=== PATIENT | female | born 1950 | race Caucasian/White ===

== ENCOUNTER 2017-06-08 08:00 | Day surgery (SDC) | payer OTHER, BC ==
--- NOTE | 2017-06-07 09:35 | HP ---
Admitting History and Physical - Primary Care Physician PCP: Nacho Cruz - Admission Chief Complaint: Left breast cancer History of Present Illness: 67 year old postmenapausal female with left nipple flattening. and retraction. Mammogram and US showed highly suspicious left retroareolar density with nipple retraction 1.9 cm. and suspiciousleft axillary lymph node 3.3 cm. Sghe underwent left US core bx and axillary bx 04/2017. Pathology showed invasive ductal carcinoma, ER/[place] positive and HEr 2 negative.The axillary lymph node bx was also positive. Breast MRI showed Left retroareolar cancer and axillary node. History Source: Patient Limitations to Obtaining History: No Limitations - Past Medical History Cardiovascular: Yes: HTN, Hyperlipdemia Endocrine: Yes: Diabetes Mellitus - Smoking History Smoking history: Former smoker Have you smoked in the past 12 months: No If you are a former smoker, when did you quit?: 2006 - Alcohol/Substance Use Hx Alcohol Use: No Home Medications - Allergies Allergies/Adverse Reactions: Allergies Allergy/AdvReac Type Severity Reaction Status Date / Time shellfish derived Allergy Severe throat Verified 05/31/17 14:43 closes No Known Drug Allergies Allergy Verified 05/31/17 14:42 - Home Medications Home Medications: Ambulatory Orders Atorvastatin Ca [Lipitor] 40 mg PO HS 05/31/17 Gemfibrozil 600 mg PO BID 05/31/17 Glimepiride 2 mg PO BID 05/31/17 Losartan Potassium 50 mg PO DAILY 05/31/17 Metformin HCl [Glucophage] 1,000 mg PO BID 05/31/17 Family Disease History - Family Disease History Family Disease History: CA: Mother (lung ca 67) Physical Examination Constitutional: Yes: Well Nourished Breast(s): Yes: Other (obvious flattening of left nipple and ptotic D cup breasts Palpable left retroareolar mass 2.5 cm and involvement of nipple and axillary node) Problem List - Problems (1) Breast cancer, left breast Code(s): C50.912 - MALIGNANT NEOPLASM OF UNSPECIFIED SITE OF LEFT FEMALE BREAST Qualifiers: Breast location: nipple Patient sex: female Assessment/Plan Left breast central wide excison and left axillary node dissection
[2017-06-08 08:25] VITALS: BMI 30.9
[2017-06-08] MEDS ORDERED: BUPIVACAINE HCL/PF 2.5 MG/ML - 30 ML VIAL IJ ONE (09:24)
[2017-06-08] MEDS ORDERED: BUPIVACAINE HCL/PF (5 MG/ML) 30 ML VIAL IJ ONE (09:29)
[2017-06-08] MEDS ORDERED: DEXAMETHASONE SOD PHOSPHATE/PF 10 MG/ML SDV ONE (09:29)
[2017-06-08] MEDS ORDERED: MIDAZOLAM HCL 2 MG/2 ML SINGLE DOSE VIAL ONE (09:29)
[2017-06-08] MEDS ORDERED: PROPOFOL 20 ML ONE ×2 (09:55)
[2017-06-08] MEDS ORDERED: ceFAZolin SODIUM 1 GM VIAL ONE (10:24)
[2017-06-08] MEDS ORDERED: ONDANSETRON 4 MG/2 ML VIAL ONE (10:24)
[2017-06-08] MEDS ORDERED: KETOROLAC TROMETHAMINE 30 MG/1 ML VIAL ONE (10:24)
[2017-06-08] MEDS ORDERED: DEXAMETHASONE SOD PHOSPHATE 4 MG/1 ML VIAL ONE (10:24)
[2017-06-08] MEDS ORDERED: LIDOCAINE HCL 2% JELLY (5 ML/TUBE) ONE (10:24)
[2017-06-08] MEDS ORDERED: ePHEDrine SULFATE 50 MG/1 ML AMPULE ONE (10:33)
[2017-06-08] MEDS ORDERED: BUPIVACAINE HCL/PF 0.25% (2.5MG/ML) 10 ML VIAL IJ ONE ×2 (11:02→11:52)
[2017-06-08] MEDS ORDERED: ZOLPIDEM TARTRATE 5 MG TABLET PO PRN ×2 (12:16→13:18)
[2017-06-08] MEDS ORDERED: ONDANSETRON 4 MG/2 ML VIAL IVPB PRN ×2 (12:16→13:18)
[2017-06-08] MEDS ORDERED: ACETAMINOPHEN 325 MG TABLET (FP) PO PRN ×2 (12:16→13:18)
[2017-06-08] MEDS ORDERED: oxyCODONE HCL 5 MG TABLET PO PRN ×4 (12:20→13:18)
[2017-06-08] MEDS ORDERED: PROMETHAZINE HCL 25 MG/1 ML VIAL IVPUSH PRN ×2 (12:20→13:18)
[2017-06-08] MEDS ORDERED: ONDANSETRON 4 MG/2 ML VIAL IVPUSH PRN ×2 (12:20→13:18)
[2017-06-08] MEDS ORDERED: ACETAMINOPHEN 325 MG TABLET (FP) PO SCH (12:30)
[2017-06-08] MEDS ORDERED: DEXTROSE 5%-0.45% SALINE 1,000 ML IV SCH ×2 (12:30→13:30)
[2017-06-08] MEDS ORDERED: LACTATED RINGERS SOLUTION 1,000 ML IV SCH ×2 (12:30→13:15)
[2017-06-08] MEDS ORDERED: ACETAMINOPHEN 325 MG TABLET (FP) ONE (13:03)
--- NOTE | 2017-06-08 13:06 | OP ---
DATE OF OPERATION: 06/08/2017 PREOPERATIVE DIAGNOSIS: Left breast central breast cancer with axillary lymph node disease. POSTOPERATIVE DIAGNOSIS: Left breast central breast cancer with axillary lymph node disease. PROCEDURE: Left breast central wide excision and left axillary lymph node dissection with partial tissue transfer closure. PRIMARY SURGEON: Nacho Cruz M.D. METEOROLOGICAL EQUIPMENT REPAIRER: ANDREI Clark COMPLICATIONS: None. ANESTHESIA: General laryngeal mask airway anesthesia. INDICATIONS: Briefly, the patient is a 67-year-old G4, P3, postmenopausal white female of Citizen Of [place] descent. She has no family history of breast or ovarian cancer, but her mother from lung cancer. The patient noticed some flattening of the left nipple and underwent the mammography and ultrasound April 2017 showing a left breast retroareolar density with nipple retraction and ultrasound showed a 1.9-cm density and she underwent an ultrasound core biopsy showing an infiltrating duct cancer intermediate grade, which was ER/[place] strongly positive and HER2/akshat negative. She was noted to have suspicious axillary lymph node on ultrasound and had that needle biopsy as well confirming metastatic breast cancer to the axillary nodes. The cancer was HER2/akshat negative by FISH with a ratio of 1.2. She underwent an MRI showing localized central left breast cancer with a suspicious axillary lymph node. The patient was advised of undergoing a left breast central wide excision with an axillary lymph node dissection. DESCRIPTION OF PROCEDURE: She was brought in for the procedure on June 08, 2017. In the holding area and site verification was made and informed consent was obtained. She was brought into the operating room and laid on the operating room table in the supine position. Venodyne was placed on the lower extremities prior to induction. She received a gram of Ancef prior to incision. She underwent general laryngeal mask airway anesthesia. She did have a pre-pectoral nerve block prior to coming into the operating room for postoperative pain control as well. Once she was properly anesthetized, the left breast was sterilely prepped and draped in the usual fashion with the left arm prepped in the field. The surgery was started with the central wide excision. An ellipse was made around the nipple/areolar complex and wide excision was undertaken, which removed the entire nipple/areolar complex and a wedge resection was undertaken deep into the left breast. The cancer was easily palpable and removed without difficulty. The specimen was oriented with a long lateral and short superior suture and specimen radiographs showed them over the cancer in question with a clip within the specimen. It was placed in formalin and sent down to Pathology as specimen. Hemostasis was achieved. A tissue transfer closure was then accomplished and the breast tissue was reapproximated using 2-0 plain suture. About a 5 x 5-cm tissue transfer was performed in order to close the defect in the center of the breast. The skin was then closed using interrupted 3-0 deep dermal Vicryl suture and a running 4-0 subcuticular Biosyn suture. At this point, the left axillary lymph node dissection was undertaken. An incision was made just below the hair barrier of the left axilla and dissection was undertaken excising the entire level 1 and level 2 region of the left axillary contents. The pectoralis minor was used as the medial border dissection with the latissimus as the lateral border of dissection and the axillary vein as the superior border of dissection. The lymph nodes were completely cleared out from within this triangle. The second intercostal brachial nerve was identified and dissected free and spared. There were grossly palpable lymph nodes felt in the left axilla, which were completely removed with the axillary dissection. The specimen was removed and sent to Pathology in formalin as left axillary lymph node dissection. The long thoracic and thoracodorsal nerves were identified and spared throughout their entire courses. Hemostasis was achieved and the wound was copiously irrigated with warm sterile saline. A 15 Rolf drain was then placed into the left axilla and brought out through a separate stab incision on the anterior axillary line and sutured in place using 2-0 nylon suture. The axilla was then closed using interrupted 2-0 plain suture. The skin was closed using interrupted 3-0 deep dermal Vicryl suture and a running 4-0 subcuticular Biosyn suture. Mastisol and Steri-Strips were applied over the wound with a compressive dressing placed over this and she was placed in a surgical bra postoperatively. The patient will be recovered and admitted postoperatively for pain control and wound management. Laryngeal mask airway tube was removed at the end of the case. Estimated blood loss was about 50 mL and she was hemodynamically stable throughout. The Rolf drain was placed on Hilraio-Moore soft bulb suction. Sanjana [id number]
[2017-06-08] MEDS: ACETAMINOPHEN 325 MG TABLET (FP) PO SCH ×2 (14:30→19:30)
[2017-06-08 14:44] LABS: HEMATOCRIT 41.7 % (32.4-45.2); MCH 31.3 pg (25.7-33.7); MCHC 33.5 g/dl (32.0-36.0); MEAN CELL VOLUME 93.3 fl (80-96); MEAN PLT VOLUME 9.4 fl (7.5-11.1); PLATELET COUNT 294 K/MM3 (134-434); RBC 4.47 M/mm3 (3.60-5.2); RDW 12.6 % (11.6-15.6); WHITE BLOOD COUNT 10.3 K/mm3 (4.0-10.8)
[2017-06-08] MEDS: metFORMIN HCL 500 MG TABLET (FP) PO SCH (15:47)
[2017-06-08] MEDS ORDERED: PT OWN MED DRAWER 7, Y5N ONE (21:04)
[2017-06-08] MEDS: oxyCODONE HCL 10 MG SUSTAINED ACTING TABLET PO SCH (21:19)
[2017-06-08] MEDS: GEMFIBROZIL 600 MG TABLET (FP) PO SCH (21:19)
[2017-06-08] MEDS ORDERED: INSULIN (NOVOLOG) ASPART 100 UNITS/ML 10ML VIAL SQ ONE (22:00)
[2017-06-08] MEDS ORDERED: GEMFIBROZIL 600 MG TABLET (FP) PO SCH (22:00)
[2017-06-08] MEDS ORDERED: PATIENT'S OWN MEDICATION (NON-FORMULARY) (Metformin Hcl [Glucophage] 1,000 MG) PO SCH (22:00)
[2017-06-08] MEDS ORDERED: oxyCODONE HCL 10 MG SUSTAINED ACTING TABLET PO SCH (22:00)
[2017-06-08] MEDS ORDERED: ATORVASTATIN CA 40 MG TABLET (FP) PO SCH ×2 (22:00)
[2017-06-09] MEDS: ACETAMINOPHEN 325 MG TABLET (FP) PO SCH ×2 (01:23→07:34)
[2017-06-09 06:42] VITALS: TEMP 98.4
[2017-06-09] MEDS: metFORMIN HCL 500 MG TABLET (FP) PO SCH (06:42)
[2017-06-09 08:46] LABS: HEMATOCRIT 38.5 % (32.4-45.2); HEMOGLOBIN 13.3 GM/dl (10.7-15.3); MCHC 34.4 g/dl (32.0-36.0); MEAN PLT VOLUME 9.6 fl (7.5-11.1); PLATELET COUNT 305 K/MM3 (134-434); RBC 4.15 M/mm3 (3.60-5.2); RDW 12.5 % (11.6-15.6); WHITE BLOOD COUNT 14.4 K/mm3 (4.0-10.8)
[2017-06-09] MEDS ORDERED: PT OWN MED DRAWER 7, Y5N ONE (09:09)
[2017-06-09 09:18] VITALS: BP 154/67; PULSE 89
[2017-06-09] MEDS: GEMFIBROZIL 600 MG TABLET (FP) PO SCH (09:19)
[2017-06-09] MEDS: oxyCODONE HCL 10 MG SUSTAINED ACTING TABLET PO SCH (09:19)
[2017-06-09] MEDS ORDERED: GLIMEPIRIDE 2 MG TABLET (FP) PO SCH (10:00)
[2017-06-09] MEDS ORDERED: LOSARTAN POTASSIUM 50 MG TABLET (FP) PO SCH ×2 (10:00)
--- NOTE | 2017-06-09 10:21 | PN ---
Progress Note, Physician Chief Complaint: Left breast cancer S/P central wide excision and axillary node dissection POD # 1 History of Present Illness: patient is OOb eating pain managed ready for discharge - Current Medication List Current Medications: Active Medications Acetaminophen (Tylenol -) 650 mg PO Q4H PRN PRN Reason: FEVER OR PAIN Acetaminophen (Tylenol -) 650 mg PO Q6H [facility] Stop: 06/11/17 12:29 Last Admin: 06/09/17 07:34 Dose: 650 mg Atorvastatin Calcium (Lipitor -) 40 mg PO HS [facility] Last Admin: 06/08/17 21:17 Dose: 40 mg Fentanyl (Sublimaze Injection -) 50 mcg IVPUSH [id number] PRN PRN Reason: PAIN Gemfibrozil (Lopid -) 600 mg PO BID [facility] Last Admin: 06/09/17 09:19 Dose: 600 mg Glimepiride (Amaryl -) 4 mg PO DAILY@0700 [facility] Last Admin: 06/09/17 09:18 Dose: 4 mg Dextrose/Sodium Chloride (D5-1/2ns -) 1,000 mls @ 100 mls/hr IV ASDIR [facility] Last Admin: 06/08/17 15:14 Dose: Not Given Lactated Ringer's (Lactated Ringers Solution) 1,000 mls @ 75 mls/hr IV ASDIR [facility] Last Admin: 06/08/17 14:30 Dose: Not Given Losartan Potassium (Cozaar -) 50 mg PO DAILY [facility] Last Admin: 06/09/17 09:19 Dose: 50 mg Metformin HCl (Glucophage -) 1,000 mg PO BIDAC [facility] Last Admin: 06/09/17 06:42 Dose: 1,000 mg Ondansetron HCl (Zofran Injection) 4 mg IVPUSH Q6H PRN PRN Reason: NAUSEA AND/OR VOMITING Oxycodone HCl (Roxicodone -) 5 mg PO Q3H PRN PRN Reason: PAIN LEVEL 1-5 Oxycodone HCl (Roxicodone -) 10 mg PO Q3H PRN PRN Reason: PAIN LEVEL 6-10 Oxycodone HCl (Oxycontin -) 10 mg PO BID [facility] Stop: 06/11/17 12:20 Last Admin: 06/09/17 09:19 Dose: 10 mg Promethazine HCl (Phenergan Injection -) 12.5 mg IVPUSH Q6H PRN PRN Reason: NAUSEA-FOR RESCUE AFTER 15 MIN Zolpidem Tartrate (Ambien -) 5 mg PO HS PRN PRN Reason: INSOMNIA - Objective Vital Signs: Vital Signs Temperature 98.4 F 06/09/17 06:00 Pulse Rate 89 06/09/17 09:17 Respiratory Rate 16 06/09/17 09:17 Blood Pressure 154/67 06/09/17 09:17 O2 Sat by Pulse Oximetry (%) 99 06/09/17 09:17 Constitutional: Yes: No Distress Breast(s): Yes: Other (Left breast flap viable no echymosis or signs of infection incisions intact with steristrips,KARMA drain funtioning) Labs: CBC, BMP 06/09/17 08:00 Problem List - Problems (1) Breast cancer, left breast Code(s): C50.912 - MALIGNANT NEOPLASM OF UNSPECIFIED SITE OF LEFT FEMALE BREAST Qualifiers: Breast location: nipple Patient sex: female Assessment/Plan ready for discharge today KARMA training follow up one week no shower cefadroxil and pain meds prn
--- NOTE | 2017-06-14 14:09 | PATH ---
Surgical Pathology Report Patient Name: AUDREY GARCIA Med. Rec. #: [id number] /Age/Gender: 1950 (Age: 67) / F Account: <[id number]> Location: [facility] Taken: 06/08/2017 Received: 06/08/2017 Reported: 06/14/2017 Physicians: Nacho Cruz M.D. Specimen(s) Received A: LEFT BREAST WIDE EXCISION B: LEFT BREAST SUPERIOR MARGIN C: LEFT BREAST LATERAL MARGIN D: LEFT BREAST INFERIOR MARGIN E: LEFT BREAST MEDIAL MARGIN F: LEFT BREAST DEEP MARGIN G: LEFT AXILLARY NODE DISSECTION Clinical History Central wide excision, invasive Known node positive disease Final Diagnosis A. BREAST, LEFT, WIDE EXCISION: INVASIVE DUCTAL CARCINOMA, MODERATELY DIFFERENTIATED (TUBULE SCORE: 3/3, NUCLEAR GRADE: 2/3, MITOTIC SCORE: 2/3; TOTAL ABDOUL SCORE: 7/9). INVASIVE CARCINOMA MEASURES 4 x 2.5 CM IN GREATEST DIMENSION (GROSS MEASUREMENT) FOCAL DUCTAL CARCINOMA IN SITU (DCIS), SOLID TYPE, INTERMEDIATE GRADE. INVASIVE CARCINOMA INVOLVES DERMIS OF SKIN AND NIPPLE. MICROCALCIFICATIONS PRESENT WITHIN INVASIVE CARCINOMA. LYMPHOVASCULAR AND PERINEURAL INVASION IDENTIFIED. SURGICAL MARGINS ARE UNINVOLVED BY IN SITU AND INVASIVE CARCINOMA; CARCINOMA IS AT 2 MM FROM CLOSEST SUPERIOR MARGIN. SEE SPECIMEN B-F FOR FINAL MARGINS. REMAINDER OF BREAST PARENCHYMA SHOWS FIBROCYSTIC CHANGES INCLUDING STROMAL FIBROSIS, FOCAL USUAL DUCTAL HYPERPLASIA, AND MICROCYSTS. PRIOR BIOPSY SITE CHANGES ARE PRESENT. PATHOLOGIC STAGE (pTNM): pT2 pN2a. SEE ALSO INVASIVE CARCINOMA CASE SUMMARY BELOW. B. BREAST, LEFT, SUPERIOR MARGIN, EXCISION: BENIGN BREAST TISSUE WITH FIBROCYSTIC CHANGES INCLUDING STROMAL FIBROSIS, FOCAL USUAL DUCTAL HYPERPLASIA AND MICROCYSTS. C. BREAST, LEFT, LATERAL MARGIN, EXCISION: BENIGN BREAST TISSUE. D. BREAST, LEFT, INFERIOR MARGIN, EXCISION: BENIGN BREAST TISSUE. E. BREAST, LEFT, MEDIAL MARGIN, EXCISION: BENIGN BREAST TISSUE. F. BREAST, LEFT, DEEP MARGIN, EXCISION: BREAST PARENCHYMA WITH FOCAL LOBULAR CARCINOMA IN SITU (LCIS). NEGATIVE FOR IN SITU AND INVASIVE DUCTAL CARCINOMA. G. AXILLARY, LEFT, LYMPH NODE, DISSECTION: SEVEN OF TWELVE LYMPH NODES, POSITIVE FOR METASTATIC CARCINOMA (7/12). LARGEST TUMOR DEPOSIT MEASURES 2.5 CM (MACROMETASTASES, >2MM). EXTRANODAL EXTENSION IDENTIFIED. LYMPHOVASCULAR INVASION PRESENT. Comment: Part A, Immunohistochemical stains performed and interpreted at [facility] show loss of myoepithelial cells within the invasive carcinoma as demonstrated by p63 and smooth muscle myosin heavy chain immunohistochemical stains. E-Cadherin stain supports ductal phenotype. Part F, E-cadherin stain is negative in the LCIS. Comments Breast Invasive Carcinoma: Surgical Pathology Case Summary (Based on AJCC TNM 8 th edition) Procedure _X_ Excision (less than total mastectomy) Specimen Laterality _X_ Left Tumor Size _X__ Greatest dimension of largest invasive focus >1 mm (specify exact measurement) (millimeters): 4.0 CM Histologic Type _X_ Invasive carcinoma of no special type (ductal, not otherwise specified) Histologic Grade (Abdoul Histologic Score) Glandular (Acinar)/Tubular Differentiation _X_ Score 3 (<10% of tumor area forming glandular/tubular structures) Nuclear Pleomorphism _X_ Score 2 Mitotic Rate _X__ Score 2 Overall Grade _X_ Grade 2 (scores of 7) Tumor Focality _X_ Single focus of invasive carcinoma Ductal Carcinoma In Situ (DCIS) _X_ DCIS is present in specimen Tumor Extension Skin _X__ Invasive carcinoma directly invades into the dermis or epidermis without skin ulceration Nipple _X__ Invasive carcinoma directly invades into the dermis Margins Invasive Carcinoma Margins _X_ Uninvolved by invasive carcinoma Distance from closest margin (millimeters): 2 mm Closest margin: Superior margin DCIS Margins _X_ Uninvolved by DCIS Distance from closest margin (millimeters): 2 mm Closest margin: Superior margin Regional Lymph Nodes Number of Lymph Nodes with Macrometastases (>2 mm): 7 Number of Lymph Nodes with Micrometastases (>0.2 mm to 2 mm and/or >200 cells): 0 Number of Lymph Nodes with Isolated Tumor Cells (=0.2 mm and =200 cells): 0 Size of Largest Metastatic Deposit (millimeters): 2.5 cm Extranodal Extension: _X__ Present Number of Lymph Nodes Examined: 12_ Number of [place] Nodes Examined : 0 Treatment Effect _X__ No known presurgical therapy Lymphovascular Invasion _X__ Present Pathologic Stage Classification (pTNM, AJCC 8th Edition) Primary Tumor (Invasive Carcinoma) (pT) _X__ pT2: Tumor >20 mm but =50 mm in greatest dimension Regional Lymph Nodes (pN) Category (pN) _X__ pN2a: Metastases in 4 to 9 axillary lymph nodes (at least 1 tumor deposit larger than 2.0 mm) Biomarker Studies Results of ER and RI studies performed on this specimen (block# A4 ) ER (clone [id number] mouse monoclonal antibody by [employer]): 99% nuclear staining with moderate to strong intensity (Positive). RI (clone16 mouse monoclonal antibody by [employer]): 70% nuclear staining with moderate to strong intensity (Positive). Results of Her2 (IHC) & Ki-67 studies performed on this specimen (block# A4) Her2 IHC (EP3 from [employer], formerly known as [id number], using [employer] Polymer Refine detection kit): 0 (Negative) Ki67: up to 20% (Intermediate proliferative index) Positive and negative controls (internal if applicable) show appropriate results. Formalin fixation and cold ischemic times are within current ASCO/CAP recommendations for ER, RI and Her2 testing. Electronically Signed Juliana Vyas M.D. Gross Description A. Received in formalin, labeled "left breast wide excision," is an 8.7 x 6.0 x 5.4 cm. aquino-yellow, irregular, portion of fibroadipose tissue. There is no needle localization wire present. There is a short suture marking the superior aspect and a long suture marking the lateral aspect, per the surgeon. The anterior surface displays an 8.7 x 4.8 cm aquino, elliptical portion of skin with a central 1.2 cm diameter nipple. The specimen is inked as follows: Superior blue; inferior green; lateral red; medial yellow; deep black. The specimen is serially sectioned from medial to lateral. Sectioning reveals a 4.0 x 2.5 x 2.0 cm ill-defined mass focally abutting the superior margin. The mass is 0.9 cm from the skin and 1.4 cm from the deep margin. The remaining margins appear clear of the mass. Healthcare Manager sections are submitted in 14 cassettes as follows: 1-serially sectioned nipple; 2-subareolar shave; 3-mass with superior margin; 7-9-obhzdtsgya mass with superior margin; 6-7-mass with skin; 0-07-mydowtaw margin; 11-12-deep margin; 13-medial margin; 14-lateral margin. Time to formalin fixation: 32 minutes Total formalin fixation time: Approximately 31 hours. B. Received in formalin labeled "left breast superior margin," is a 3.5 x 2.7 x 1.0 cm irregular portion of fibroadipose tissue with a suture marking the biopsy cavity side, per the surgeon. The new margin is inked blue and the specimen is serially sectioned. The specimen is entirely and sequentially submitted in 4 cassettes. C. Received in formalin labeled "left breast lateral margin," is a 3.3 x 2.6 x 0.9 cm irregular portion of fibroadipose tissue with a suture marking the biopsy cavity side, per the surgeon. The new margin is inked blue and the specimen is serially sectioned. The specimen is entirely submitted in 3 cassettes. D. Received in formalin labeled "left breast inferior margin," is a 2.5 x 2.3 x 0.9 cm irregular portion of fibroadipose tissue with a suture marking the biopsy cavity side, per the surgeon. The new margin is inked blue and the specimen is serially sectioned. The specimen is entirely submitted in 3 cassettes. E. Received in formalin labeled "left breast medial margin," is a 3.2 x 2.1 x 0.8 cm irregular portion of fibroadipose tissue with a suture marking the biopsy cavity side, per the surgeon. The new margin is inked blue and the specimen is serially sectioned. The specimen is entirely and sequentially submitted in 4 cassettes. F. Received in formalin labeled "left breast deep margin," is a 2.7 x 2.1 x 0.8 cm irregular portion of fibroadipose tissue with a suture marking the biopsy cavity side, per the surgeon. The new margin is inked blue and the specimen is serially sectioned. Specimen is entirely submitted in 3 cassettes. G. Received in formalin labeled "left axillary node dissection," is a 10.5 x 8.5 x 5.3 cm aggregate of yellow, lobulated adipose tissue. Sectioning reveals abundant aquino-white, firm, irregular lymph nodes ranging from 0.4 x 0.4 x 0.3 cm to 2.8 x 2.6 x 2.3 cm. The lymph nodes are submitted in 20 cassettes as follows: 1-9-one whole bisected lymph node each; 10-11-one whole bisected lymph node; 12-13-one whole bisected lymph node; 14-16-one whole trisected lymph node; 67-28-nngtczgimtkmje sections of largest lymph node. DL06/09/2017 saudi06/09/2017
== END 2017-06-09 11:48 | disposition home or self-care (01) ==
LOC: FASU 08:00 → EDSTATUS 09:30 → FM/S 13:14 → FASU 06-09 11:48
PROVIDERS: ATTEND Surgery Surgical Oncology
PROC: 07T60ZZ Resection of Left Axillary Lymphatic, Open Approach (ICD-10-PCS; 2017-06-08)
PROC: 0JX60ZC Transfer Chest Subcutaneous Tissue and Fascia with Skin, Subcutaneous Tissue and Fascia, Open Approach (ICD-10-PCS; 2017-06-08)
PROC: 0HBU0ZZ Excision of Left Breast, Open Approach (ICD-10-PCS; principal; 2017-06-08 10:13)
DX: C50.912 Malignant neoplasm of unspecified site of left female breast (principal); I10 Essential (primary) hypertension; E78.5 Hyperlipidemia, unspecified; E11.9 Type 2 diabetes mellitus without complications; Z87.891 Personal history of nicotine dependence; Z79.84 Long term (current) use of oral hypoglycemic drugs; Z17.0 Estrogen receptor positive status [ER+]
CPT/HCPCS: 36415; 85027; 88307-TC; 88341-TC; 94010; 94760

== ENCOUNTER 2017-08-01 11:33 | Day surgery (SDC) | payer OTHER, BC ==
[2017-07-21 11:01] VITALS: BMI 30.9
--- NOTE | 2017-07-24 10:51 | HP ---
Admitting History and Physical - Primary Care Physician PCP: Nacho Cruz - Admission Chief Complaint: Left breast cancer with axillary metastatic dz History of Present Illness: 67 year old postmenapausal female S/P Left breast central wide excision axillary lymph node dissection for 2.75 x 4.0 cm invasive ductal carcinoma 7+/ 12 positive nodes. 06/08/2017. She needs life port for chemotherapy. History Source: Patient Limitations to Obtaining History: No Limitations - Past Medical History Cardiovascular: Yes: HTN, Hyperlipdemia Endocrine: Yes: Diabetes Mellitus - Past Surgical History Additional Past Surgical History: S/P Left 06/08/2017 breast central wid excision with axillary node dissection 4x 2.5 cm invasive cancer with 7+/12 nodes - Smoking History Smoking history: Former smoker Have you smoked in the past 12 months: No If you are a former smoker, when did you quit?: 2006 - Alcohol/Substance Use Hx Alcohol Use: No Home Medications - Allergies Allergies/Adverse Reactions: Allergies Allergy/AdvReac Type Severity Reaction Status Date / Time shellfish derived Allergy Severe throat Verified 05/31/17 14:43 closes No Known Drug Allergies Allergy Verified 05/31/17 14:42 - Home Medications Home Medications: Ambulatory Orders Atorvastatin Ca [Lipitor] 40 mg PO HS 05/31/17 Gemfibrozil 600 mg PO BID 05/31/17 Glimepiride 2 tab PO DAILY 05/31/17 Losartan Potassium 50 mg PO DAILY 05/31/17 Metformin HCl [Glucophage] 1,000 mg PO BID 05/31/17 Carvedilol 3.125 mg PO BID 07/21/17 Family Disease History - Family Disease History Family Disease History: CA: Mother (lung ca 67) Physical Examination Constitutional: Yes: Well Nourished Breast(s): Yes: Other (S/P left breast central wid excision healing well seroma aspirated incision intact and no signs of infection) Problem List - Problems (1) Breast cancer, left breast Code(s): C50.912 - MALIGNANT NEOPLASM OF UNSPECIFIED SITE OF LEFT FEMALE BREAST Qualifiers: Breast location: nipple Patient sex: female Assessment/Plan Life port insertion
[2017-08-01] MEDS ORDERED: PROPOFOL 20 ML ONE ×2 (12:44)
[2017-08-01] MEDS ORDERED: MIDAZOLAM HCL 2 MG/2 ML SINGLE DOSE VIAL ONE (12:44)
[2017-08-01] MEDS ORDERED: ONDANSETRON 4 MG/2 ML VIAL IVPUSH PRN ×2 (13:03→14:09)
[2017-08-01] MEDS ORDERED: KETOROLAC TROMETHAMINE 30 MG/1 ML VIAL IVPUSH PRN (13:03)
[2017-08-01] MEDS ORDERED: DEXTROSE 5%-0.45% SALINE 1,000 ML IV SCH (13:15)
[2017-08-01] MEDS ORDERED: DEXAMETHASONE SOD PHOSPHATE 4 MG/1 ML VIAL ONE (13:17)
[2017-08-01] MEDS ORDERED: ONDANSETRON 4 MG/2 ML VIAL ONE (13:17)
[2017-08-01] MEDS ORDERED: KETOROLAC TROMETHAMINE 30 MG/1 ML VIAL ONE (13:17)
[2017-08-01] MEDS ORDERED: ceFAZolin SODIUM 1 GM VIAL ONE (13:17)
[2017-08-01] MEDS ORDERED: LIDOCAINE HCL 1%, 10 MG/ML (20ML VIAL) INF ONE ×3 (13:45)
[2017-08-01] MEDS ORDERED: GUM MASTIC/STORAX/MSAL/ALCOHOL 1 DRP DROPSBTL MC ONE (13:59)
[2017-08-01] MEDS ORDERED: PROMETHAZINE HCL 25 MG/1 ML VIAL IVPUSH PRN (14:09)
[2017-08-01] MEDS ORDERED: oxyCODONE HCL 5 MG TABLET PO PRN (14:09)
[2017-08-01 16:33] VITALS: TEMP 97.6
[2017-08-01 16:38] VITALS: BP 123/62; PULSE 69
--- NOTE | 2017-08-02 07:43 | OP ---
DATE OF OPERATION: 08/01/2017 PREOPERATIVE DIAGNOSIS: Left breast central breast cancer. POSTOPERATIVE DIAGNOSIS: Left breast central breast cancer. PROCEDURE: Right-sided single-lumen subclavian vein Port-A-Cath placed under fluoroscopy using the Seldinger technique. ANESTHESIA: Local with IV sedation. SURGEON: Nacho Cruz MD SHIPWRIGHT SUPERVISOR: ANDREI Green COMPLICATIONS: None. Briefly, the patient is a 67-year-old postmenopausal white female of [place] descent with no family history of breast or ovarian cancer. She was noted to have some flattening of the left nipple and retraction in April 2017 and mammography and ultrasound showed a 1.9-cm left retroareolar breast mass and a suspicious left axillary lymph node. Core biopsy showed an intermediate-grade infiltrating ductal cancer which was ER/[place] positive, HER2 negative and the axillary lymph node was positive as well. MRI showed the localized cancer in the left central region and the positive left axillary lymph node and she underwent a left breast partial mastectomy and axillary lymph node dissection on June 08, 2017, and ended up with a 4 x 2.5-cm infiltrating ductal cancer with lymphovascular invasion in 7 out of 12 positive nodes, making this a stage 3 breast cancer. She was seen by Medical Oncology for chemotherapy and now comes in for Port-A-Cath placement. The patient was brought into ambulatory surgery on August 01, 2017. In the holding area, site verification was made and informed consent was obtained. She was then brought into the operating room and laid on the OR table in a supine position. Venodynes were placed on the lower extremities. She had a rolled sheet placed under her midline spine. The right arm was tucked at her side and the right chest wall and upper neck were sterilely prepped and draped in the usual fashion. She was given IV sedation. Lidocaine 1% was given directly underneath the right clavicle and the patient was placed in a slight Trendelenburg position. The right subclavian vein was easily cannulated using the Seldinger technique and the wire threaded into the superior vena cava under fluoroscopy without difficulty. The wire was then clipped to the drape. At this point, the infraclavicular pocket was fashioned again using 1% lidocaine for local anesthesia and the infraclavicular pocket was fashioned using electrocautery for hemostasis. The catheter was then cut to the appropriate length and attached to the Port-A-Cath chamber which was placed into the infraclavicular pocket and secured in place using 2 separate 2-0 Prolene sutures. At this point, the tear-away sheath introducer was placed over the wire under fluoroscopy without difficulty and the dilator and wire were removed. The catheter was threaded down to the tear-away sheath and the tear-away sheath was torn away, leaving the catheter in good position in the superior vena cava. There was excellent blood return from the Port-A-Cath chamber and it was flushed with dilute heparin at 10 units/mL. At this point, 1 mL of concentrated heparin at 1000 units/mL was instilled into the Port-A-Cath chamber using the Garibay needle. The wound was then closed using interrupted 3-0 deep dermal Vicryl suture and a running 4-0 subcuticular Biosyn suture. Mastisol, Steri-Strips were applied over the wound with a compressive dressing placed over this. The patient tolerated the procedure well without difficulty and will get a chest x-ray in the recovery room and if that shows the line in good position she will start chemotherapy in about 2 days. All sponge and needle counts were correct at the end of the case and estimated blood loss was minimal. Sanjana [id number]
== END 2017-08-01 15:35 | disposition home or self-care (01) ==
LOC: FASU 11:33
PROVIDERS: ATTEND Surgery Surgical Oncology
PROC: B516ZZA Fluoroscopy of Right Subclavian Vein, Guidance (ICD-10-PCS; 2017-08-01)
PROC: 05H533Z Insertion of Infusion Device into Right Subclavian Vein, Percutaneous Approach (ICD-10-PCS; principal; 2017-08-01 13:32)
DX: C50.912 Malignant neoplasm of unspecified site of left female breast (principal); C77.3 Secondary and unspecified malignant neoplasm of axilla and upper limb lymph nodes
CPT/HCPCS: 71045-TC-FY; 76000-TC-FY; 82962; J1644

== ENCOUNTER 2017-08-03 07:37 | Day surgery (SDC) | payer OTHER, BC ==
[2017-08-03] MEDS ORDERED: SODIUM CHLORIDE 250 ML IV ONE ×2 (09:00→11:30)
[2017-08-03] MEDS ORDERED: PALONOSETRON HCL 0.25 MG/5 ML VIAL IVPUSH ONE (10:00)
[2017-08-03] MEDS ORDERED: DEXAMETHASONE INJECTION 20 MG in SODIUM CHLORIDE 100 ML IVPB ONE (10:00)
[2017-08-03 10:27] LABS: BASO % 1.1 % (0-2.0); EOS % 2.4 % (0-4.5); HEMATOCRIT 40.2 % (32.4-45.2); HEMOGLOBIN 13.3 GM/dL (10.7-15.3); LYMPH % 43.6 % (8-40); MCH 30.3 pg (25.7-33.7); MCHC 33.1 g/dl (32.0-36.0); MEAN CELL VOLUME 91.4 fl (80-96); MEAN PLT VOLUME 8.3 fl (7.5-11.1); NEUT % 44.9 % (42.8-82.8); PLATELET COUNT 288 K/MM3 (134-434); RBC 4.39 M/mm3 (3.60-5.2); RDW 12.9 % (11.6-15.6); WHITE BLOOD COUNT 9.8 K/mm3 (4.0-10.0)
[2017-08-03] MEDS ORDERED: SODIUM CHLORIDE IV ONE (10:30)
[2017-08-03] MEDS ORDERED: DOXORUBICIN HCL IV ONE (10:30)
[2017-08-03] MEDS ORDERED: CYCLOPHOSPHAMIDE IVPB ONE (11:00)
[2017-08-03] MEDS ORDERED: SODIUM CHLORIDE IVPB ONE (11:00)
[2017-08-03 11:03] LABS: ALK PHOS 85 U/L (45-117); ANION GAP 7 (8-16); BILIRUBIN,DIRECT < 0.2 mg/dL (0.0-0.2); BILIRUBIN,TOTAL 0.5 mg/dL (0.2-1.0); BLOOD UREA NITROGEN 21 mg/dL (7-18); CHLORIDE 105 mmol/L (98-107); CO2 27 mmol/L (21-32); CREATININE 0.8 mg/dL (0.55-1.02); GLUCOSE,RANDOM 128 mg/dL (74-106); MAGNESIUM 1.8 mg/dL (1.8-2.4); POTASSIUM 4.2 mmol/L (3.5-5.1); SGOT/AST 34 U/L (15-37); SGPT/ALT 59 U/L (12-78); SODIUM 139 mmol/L (136-145); TOT PROT 7.3 g/dl (6.4-8.2)
[2017-08-03] MEDS ORDERED: PORTA CATH FLUSH 10 ML IVPUSH ONE (15:56)
[2017-08-03 15:57] VITALS: TEMP 97.5
[2017-08-03 15:58] VITALS: BP 120/65; PULSE 62
== END 2017-08-03 15:15 | disposition home or self-care (01) ==
LOC: JONCCHEMO 07:37 → J7W 10:55 → JONCCHEMO 15:15
PROVIDERS: ATTEND Internal Medicine Hematology & Oncology
DX: Z51.11 Encounter for antineoplastic chemotherapy (principal); C50.919 Malignant neoplasm of unspecified site of unspecified female breast; C77.9 Secondary and unspecified malignant neoplasm of lymph node, unspecified; C79.51 Secondary malignant neoplasm of bone
CPT/HCPCS: 36415; 80053; 80076; 83735; 85025; 96361; 96375; 96413; 96417; J1100; J2469; J9070

== ENCOUNTER 2017-08-04 07:36 | Day surgery (SDC) | payer OTHER, BC ==
[2017-08-04] MEDS ORDERED: PEGFILGRASTIM 6 MG/0.6 ML DISP.SYRIN SQ ONE (10:00)
[2017-08-04 16:01] VITALS: BP 132/74; PULSE 70; TEMP 97.5
== END 2017-08-04 15:30 | disposition home or self-care (01) ==
LOC: JONCCHEMO 07:36 → J7W 15:09 → JONCCHEMO 15:30
PROVIDERS: ATTEND Internal Medicine Hematology & Oncology
PROC: 3E013GC Introduction of Other Therapeutic Substance into Subcutaneous Tissue, Percutaneous Approach (ICD-10-PCS; principal; 2017-08-04)
DX: C50.919 Malignant neoplasm of unspecified site of unspecified female breast (principal); C77.9 Secondary and unspecified malignant neoplasm of lymph node, unspecified; C79.51 Secondary malignant neoplasm of bone; Z76.89 Persons encountering health services in other specified circumstances
CPT/HCPCS: 96401; J2505

== ENCOUNTER 2017-08-24 07:23 | Day surgery (SDC) | payer OTHER, BC ==
[2017-08-24] MEDS ORDERED: SODIUM CHLORIDE 250 ML IV ONE ×2 (09:00→11:30)
[2017-08-24 09:50] LABS: EOS % 0.4 % (0-4.5); HEMATOCRIT 38.2 % (32.4-45.2); HEMOGLOBIN 13.1 GM/dL (10.7-15.3); LYMPH % 17.9 % (8-40); MCH 31.1 pg (25.7-33.7); MCHC 34.2 g/dl (32.0-36.0); MEAN CELL VOLUME 90.9 fl (80-96); MEAN PLT VOLUME 8.3 fl (7.5-11.1); MONO % 13.8 % (3.8-10.2); NEUT % 66.9 % (42.8-82.8); PLATELET COUNT 404 K/MM3 (134-434); RBC 4.21 M/mm3 (3.60-5.2); RDW 13.7 % (11.6-15.6)
[2017-08-24] MEDS ORDERED: FOSAPREPITANT DIMEGLUMINE 150 MG in SODIUM CHLORIDE 150 ML IVPB ONE (10:00)
[2017-08-24] MEDS ORDERED: PALONOSETRON HCL 0.25 MG/5 ML VIAL IVPUSH ONE (10:00)
[2017-08-24] MEDS ORDERED: DEXAMETHASONE INJECTION 20 MG in SODIUM CHLORIDE 100 ML IVPB ONE (10:00)
[2017-08-24] MEDS ORDERED: DEXAMETHASONE IVPB ONE (10:00)
[2017-08-24] MEDS ORDERED: SODIUM CHLORIDE IVPB ONE ×2 (10:00→11:00)
[2017-08-24 10:18] LABS: ANION GAP 8 (8-16); BLOOD UREA NITROGEN 17 mg/dL (7-18); CALCIUM 9.3 mg/dL (8.5-10.1); CHLORIDE 106 mmol/L (98-107); CO2 26 mmol/L (21-32); GLUCOSE,RANDOM 147 mg/dL (74-106); MAGNESIUM 1.9 mg/dL (1.8-2.4); POTASSIUM 4.8 mmol/L (3.5-5.1); SGPT/ALT 57 U/L (12-78); SODIUM 140 mmol/L (136-145)
[2017-08-24 10:21] LABS: ALK PHOS 90 U/L (45-117); BILIRUBIN,DIRECT < 0.2 mg/dL (0.0-0.2); BILIRUBIN,TOTAL 0.5 mg/dL (0.2-1.0); CREATININE 0.8 mg/dL (0.55-1.02); SGOT/AST 32 U/L (15-37); TOT PROT 7.3 g/dl (6.4-8.2)
[2017-08-24] MEDS ORDERED: SODIUM CHLORIDE IV ONE (10:30)
[2017-08-24] MEDS ORDERED: DOXORUBICIN HCL IV ONE (10:30)
[2017-08-24] MEDS ORDERED: CYCLOPHOSPHAMIDE IVPB ONE (11:00)
[2017-08-24] MEDS ORDERED: PORTA CATH FLUSH 10 ML IVPUSH ONE (16:09)
[2017-08-24 16:10] VITALS: TEMP 97.4
[2017-08-24 16:14] VITALS: BP 133/74; PULSE 80
== END 2017-08-24 16:17 | disposition home or self-care (01) ==
LOC: JONCCHEMO 07:23
PROVIDERS: ATTEND Internal Medicine Hematology & Oncology
PROC: 3E04305 Introduction of Other Antineoplastic into Central Vein, Percutaneous Approach (ICD-10-PCS; principal; 2017-08-24)
PROC: 3E0437Z Introduction of Electrolytic and Water Balance Substance into Central Vein, Percutaneous Approach (ICD-10-PCS; 2017-08-24)
DX: Z51.11 Encounter for antineoplastic chemotherapy (principal); C50.012 Malignant neoplasm of nipple and areola, left female breast; Z17.0 Estrogen receptor positive status [ER+]; I10 Essential (primary) hypertension; E78.00 Pure hypercholesterolemia, unspecified; E11.9 Type 2 diabetes mellitus without complications
CPT/HCPCS: 36415; 80053; 80076; 83735; 85025; 96361; 96367; 96375; 96413; 96417; J1100; J1453; J2469; J9070

== ENCOUNTER 2017-08-25 07:45 | Day surgery (SDC) | payer OTHER, BC ==
[2017-08-25] MEDS ORDERED: PEGFILGRASTIM 6 MG/0.6 ML DISP.SYRIN SQ ONE (10:00)
[2017-08-25 16:28] VITALS: BP 136/71; PULSE 70; TEMP 97
== END 2017-08-25 14:30 | disposition home or self-care (01) ==
LOC: JONCCHEMO 07:45 → J7W 14:15 → JONCCHEMO 14:30
PROVIDERS: ATTEND Internal Medicine Hematology & Oncology
PROC: 3E013GC Introduction of Other Therapeutic Substance into Subcutaneous Tissue, Percutaneous Approach (ICD-10-PCS; principal; 2017-08-25)
DX: Z76.89 Persons encountering health services in other specified circumstances (principal); C50.012 Malignant neoplasm of nipple and areola, left female breast; Z17.0 Estrogen receptor positive status [ER+]
CPT/HCPCS: 96372; J2505

== ENCOUNTER 2017-10-05 07:21 | Day surgery (SDC) | payer OTHER, BC ==
[2017-10-05] MEDS ORDERED: SODIUM CHLORIDE 250 ML IV ONE ×2 (09:00→11:30)
[2017-10-05] MEDS ORDERED: DEXAMETHASONE INJECTION 20 MG in SODIUM CHLORIDE 100 ML IVPB ONE (10:00)
[2017-10-05] MEDS ORDERED: PALONOSETRON HCL 0.25 MG/5 ML VIAL IVPUSH ONE (10:00)
[2017-10-05] MEDS ORDERED: SODIUM CHLORIDE IV ONE (10:30)
[2017-10-05] MEDS ORDERED: DOXORUBICIN HCL IV ONE (10:30)
[2017-10-05] MEDS ORDERED: CYCLOPHOSPHAMIDE IVPB ONE (11:00)
[2017-10-05] MEDS ORDERED: SODIUM CHLORIDE IVPB ONE ×2 (11:00→13:00)
[2017-10-05 11:11] LABS: EOS % 0.5 % (0-4.5); HEMATOCRIT 32.3 % (32.4-45.2); HEMOGLOBIN 11.3 GM/dL (10.7-15.3); LYMPH % 16.7 % (8-40); MCH 32.9 pg (25.7-33.7); MCHC 34.9 g/dl (32.0-36.0); MEAN CELL VOLUME 94.3 fl (80-96); MEAN PLT VOLUME 8.3 fl (7.5-11.1); MONO % 17.6 % (3.8-10.2); NEUT % 64.2 % (42.8-82.8); PLATELET COUNT 335 K/MM3 (134-434); RBC 3.43 M/mm3 (3.60-5.2); RDW 17.5 % (11.6-15.6); WHITE BLOOD COUNT 4.9 K/mm3 (4.0-10.0)
[2017-10-05 11:31] LABS: ALBUMIN 3.8 g/dl (3.4-5.0); ANION GAP 9 (8-16); BILIRUBIN,TOTAL 0.5 mg/dL (0.2-1.0); BLOOD UREA NITROGEN 20 mg/dL (7-18); CALCIUM 9.1 mg/dL (8.5-10.1); CHLORIDE 107 mmol/L (98-107); CO2 25 mmol/L (21-32); CREATININE 0.7 mg/dL (0.55-1.02); GLUCOSE,RANDOM 151 mg/dL (74-106); POTASSIUM 4.2 mmol/L (3.5-5.1); SGOT/AST 29 U/L (15-37); SGPT/ALT 42 U/L (12-78); SODIUM 141 mmol/L (136-145)
[2017-10-05 11:32] LABS: ALBUMIN 3.8 g/dl (3.4-5.0); ALK PHOS 87 U/L (45-117); BILIRUBIN,DIRECT < 0.2 mg/dL (0.0-0.2); BILIRUBIN,TOTAL 0.4 mg/dL (0.2-1.0); MAGNESIUM 1.8 mg/dL (1.8-2.4); SGOT/AST 30 U/L (15-37); SGPT/ALT 41 U/L (12-78)
[2017-10-05 11:33] LABS: ALK PHOS 86 U/L (45-117)
[2017-10-05] MEDS ORDERED: DEXAMETHASONE SOD PHOSPHATE 20 MG/5 ML VIAL IVPB ONE (11:42)
[2017-10-05] MEDS ORDERED: FOSAPREPITANT DIMEGLUMINE 150 MG in SODIUM CHLORIDE 145 ML IVPB ONE (13:00)
[2017-10-05] MEDS ORDERED: DEXAMETHASONE IVPB ONE (13:00)
[2017-10-05 13:13] VITALS: TEMP 97.2
[2017-10-05] MEDS ORDERED: PORTA CATH FLUSH 10 ML IVPUSH ONE (13:13)
[2017-10-05 17:42] VITALS: BP 117/61; PULSE 68
== END 2017-10-05 17:45 | disposition home or self-care (01) ==
LOC: JONCCHEMO 07:21 → J7W 13:06 → JONCCHEMO 17:45
PROVIDERS: ATTEND Internal Medicine Hematology & Oncology
DX: Z51.11 Encounter for antineoplastic chemotherapy (principal); C50.012 Malignant neoplasm of nipple and areola, left female breast
CPT/HCPCS: 36415; 80053; 80076; 83735; 85025; 96361; 96367; 96375; 96413; 96417; J1100; J1453; J2469; J9070

== ENCOUNTER 2017-10-06 07:33 | Day surgery (SDC) | payer OTHER, BC ==
[2017-10-06] MEDS ORDERED: PEGFILGRASTIM 6 MG/0.6 ML DISP.SYRIN SQ ONE (10:00)
[2017-10-06 14:28] VITALS: BP 134/69; PULSE 72; TEMP 97.6
== END 2017-10-06 13:25 | disposition home or self-care (01) ==
LOC: JONCCHEMO 07:33
PROVIDERS: ATTEND Internal Medicine Hematology & Oncology
PROC: 3E013GC Introduction of Other Therapeutic Substance into Subcutaneous Tissue, Percutaneous Approach (ICD-10-PCS; principal; 2017-10-06)
DX: C50.012 Malignant neoplasm of nipple and areola, left female breast (principal); Z76.89 Persons encountering health services in other specified circumstances
CPT/HCPCS: 96372; J2505

== ENCOUNTER 2017-10-26 07:33 | Day surgery (SDC) | payer OTHER, BC ==
[2017-10-26] MEDS ORDERED: SODIUM CHLORIDE 250 ML IV ONE ×2 (08:00→10:00)
[2017-10-26] MEDS ORDERED: PALONOSETRON HCL 0.25 MG/5 ML VIAL IVPUSH ONE (08:30)
[2017-10-26] MEDS ORDERED: DEXAMETHASONE INJECTION 20 MG, DIPHENHYDRAMINE 50 MG, RANITIDINE INJECTION 50 MG in SOD... IVPB ONE (08:30)
[2017-10-26] MEDS ORDERED: PACLITAXEL 156 MG in SODIUM CHLORIDE 250 ML IVPB ONE (09:00)
[2017-10-26 10:38] LABS: BASO % 0.7 % (0-2.0); HEMATOCRIT 34.9 % (32.4-45.2); HEMOGLOBIN 11.9 GM/dL (10.7-15.3); LYMPH % 10.8 % (8-40); MCH 33.2 pg (25.7-33.7); MCHC 34.1 g/dl (32.0-36.0); MEAN CELL VOLUME 97.4 fl (80-96); MEAN PLT VOLUME 8.5 fl (7.5-11.1); MONO % 15.7 % (3.8-10.2); NEUT % 71.8 % (42.8-82.8); PLATELET COUNT 398 K/MM3 (134-434); RBC 3.58 M/mm3 (3.60-5.2); WHITE BLOOD COUNT 6.5 K/mm3 (4.0-10.0)
[2017-10-26] MEDS ORDERED: ONDANSETRON 4 MG/2 ML VIAL IVPB ONE (10:59)
[2017-10-26 11:11] LABS: ALBUMIN 3.9 g/dl (3.4-5.0); ALK PHOS 97 U/L (45-117); ANION GAP 7 (8-16); BILIRUBIN,TOTAL 0.6 mg/dL (0.2-1.0); BLOOD UREA NITROGEN 22 mg/dL (7-18); CALCIUM 9.6 mg/dL (8.5-10.1); CHLORIDE 106 mmol/L (98-107); CO2 26 mmol/L (21-32); CREATININE 0.8 mg/dL (0.55-1.02); GLUCOSE,RANDOM 164 mg/dL (74-106); POTASSIUM 4.7 mmol/L (3.5-5.1); SGOT/AST 25 U/L (15-37); SGPT/ALT 38 U/L (12-78); SODIUM 139 mmol/L (136-145); TOT PROT 7.5 g/dl (6.4-8.2)
[2017-10-26 11:24] LABS: BILIRUBIN,DIRECT < 0.2 mg/dL (0.0-0.2)
[2017-10-26] MEDS ORDERED: PORTA CATH FLUSH 10 ML IVPUSH ONE (11:49)
[2017-10-26 11:52] VITALS: TEMP 98.2
[2017-10-26 16:08] VITALS: BP 139/71; PULSE 80
== END 2017-10-26 15:45 | disposition home or self-care (01) ==
LOC: JONCCHEMO 07:33 → J7W 11:29 → JONCCHEMO 15:45
PROVIDERS: ATTEND Internal Medicine Hematology & Oncology
DX: Z51.11 Encounter for antineoplastic chemotherapy (principal); C50.012 Malignant neoplasm of nipple and areola, left female breast
CPT/HCPCS: 36415; 80053; 80076; 83735; 85025; 96361; 96367; 96375; 96413; J1100

== ENCOUNTER 2017-11-02 06:43 | Day surgery (SDC) | payer OTHER, BC ==
[2017-11-02] MEDS ORDERED: SODIUM CHLORIDE 250 ML IV ONE ×2 (08:00→10:00)
[2017-11-02] MEDS ORDERED: PALONOSETRON HCL 0.25 MG/5 ML VIAL IVPUSH ONE (08:30)
[2017-11-02] MEDS ORDERED: DEXAMETHASONE INJECTION 20 MG, DIPHENHYDRAMINE 50 MG, RANITIDINE INJECTION 50 MG in SOD... IVPB ONE (08:30)
[2017-11-02] MEDS ORDERED: PACLITAXEL 156 MG in SODIUM CHLORIDE 250 ML IVPB ONE (09:00)
[2017-11-02 11:47] LABS: BASO % 2.9 % (0-2.0); EOS % 3.3 % (0-4.5); HEMATOCRIT 31.1 % (32.4-45.2); HEMOGLOBIN 10.8 GM/dL (10.7-15.3); LYMPH % 22.6 % (8-40); MCH 33.7 pg (25.7-33.7); MCHC 34.7 g/dl (32.0-36.0); MEAN CELL VOLUME 97.2 fl (80-96); MEAN PLT VOLUME 8.5 fl (7.5-11.1); MONO % 8.7 % (3.8-10.2); NEUT % 62.5 % (42.8-82.8); PLATELET COUNT 384 K/MM3 (134-434); RDW 16.8 % (11.6-15.6)
[2017-11-02 11:54] LABS: ALBUMIN 3.7 g/dl (3.4-5.0); ANION GAP 8 (8-16); BILIRUBIN,DIRECT < 0.2 mg/dL (0.0-0.2); BILIRUBIN,TOTAL 0.6 mg/dL (0.2-1.0); BLOOD UREA NITROGEN 20 mg/dL (7-18); CHLORIDE 106 mmol/L (98-107); CO2 25 mmol/L (21-32); CREATININE 0.7 mg/dL (0.55-1.02); GLUCOSE,RANDOM 147 mg/dL (74-106); POTASSIUM 4.3 mmol/L (3.5-5.1); SGOT/AST 22 U/L (15-37); SGPT/ALT 41 U/L (12-78); SODIUM 139 mmol/L (136-145)
[2017-11-02 11:55] LABS: ALK PHOS 80 U/L (45-117); TOT PROT 6.9 g/dl (6.4-8.2)
[2017-11-02 15:50] VITALS: TEMP 97.4
[2017-11-02 16:09] VITALS: BP 147/75; PULSE 81
== END 2017-11-02 16:09 | disposition home or self-care (01) ==
LOC: JONCCHEMO 06:43
PROVIDERS: ATTEND Internal Medicine Hematology & Oncology
PROC: 3E04305 Introduction of Other Antineoplastic into Central Vein, Percutaneous Approach (ICD-10-PCS; principal; 2017-11-02)
PROC: 3E0437Z Introduction of Electrolytic and Water Balance Substance into Central Vein, Percutaneous Approach (ICD-10-PCS; 2017-11-02)
PROC: 3E033GC Introduction of Other Therapeutic Substance into Peripheral Vein, Percutaneous Approach (ICD-10-PCS; 2017-11-02)
DX: Z51.11 Encounter for antineoplastic chemotherapy (principal); C50.012 Malignant neoplasm of nipple and areola, left female breast; Z17.0 Estrogen receptor positive status [ER+]; I10 Essential (primary) hypertension; E11.9 Type 2 diabetes mellitus without complications; E78.00 Pure hypercholesterolemia, unspecified
CPT/HCPCS: 36415; 80053; 80076; 85025; 96361; 96367; 96375; 96413; J1100

== ENCOUNTER 2017-11-03 07:33 | Day surgery (SDC) | payer OTHER, BC ==
[2017-11-03] MEDS ORDERED: TBO-FILGRASTIM 480 MCG/0.8 ML DISP.SYRIN SQ ONE (10:00)
[2017-11-03 17:26] VITALS: TEMP 97.5
[2017-11-03 17:32] VITALS: BP 153/74; PULSE 80
== END 2017-11-03 12:45 | disposition home or self-care (01) ==
LOC: JONCCHEMO 07:33 → J7W 11:46 → JONCCHEMO 12:45
PROVIDERS: ATTEND Internal Medicine Hematology & Oncology
PROC: 3E013GC Introduction of Other Therapeutic Substance into Subcutaneous Tissue, Percutaneous Approach (ICD-10-PCS; principal; 2017-11-03)
DX: C50.012 Malignant neoplasm of nipple and areola, left female breast (principal); C17.0 Malignant neoplasm of duodenum
CPT/HCPCS: 96372; J1447

== ENCOUNTER 2017-11-09 07:24 | Day surgery (SDC) | payer OTHER, BC ==
[2017-11-09] MEDS ORDERED: SODIUM CHLORIDE 250 ML IV ONE ×2 (08:00→10:00)
[2017-11-09] MEDS ORDERED: DIPHENHYDRAMINE IVPB ONE (08:30)
[2017-11-09] MEDS ORDERED: DEXAMETHASONE IVPB ONE (08:30)
[2017-11-09] MEDS ORDERED: [UNRECOGNIZED DRUG - OTHER] IVPB ONE (08:30)
[2017-11-09] MEDS ORDERED: PALONOSETRON HCL 0.25 MG/5 ML VIAL IVPUSH ONE (08:30)
[2017-11-09] MEDS ORDERED: RANITIDINE IVPB ONE (08:30)
[2017-11-09] MEDS ORDERED: PACLITAXEL 156 MG in SODIUM CHLORIDE 250 ML IVPB ONE (09:00)
[2017-11-09 10:53] LABS: BASO % 2.7 % (0-2.0); EOS % 9.4 % (0-4.5); HEMATOCRIT 30.3 % (32.4-45.2); HEMOGLOBIN 10.6 GM/dL (10.7-15.3); LYMPH % 22.9 % (8-40); MCHC 34.9 g/dl (32.0-36.0); MEAN CELL VOLUME 97.4 fl (80-96); MEAN PLT VOLUME 8.2 fl (7.5-11.1); MONO % 10.4 % (3.8-10.2); NEUT % 54.6 % (42.8-82.8); PLATELET COUNT 364 K/MM3 (134-434); RBC 3.11 M/mm3 (3.60-5.2); RDW 16.5 % (11.6-15.6); WHITE BLOOD COUNT 3.7 K/mm3 (4.0-10.0)
[2017-11-09 11:17] LABS: ALBUMIN 3.6 g/dl (3.4-5.0); ANION GAP 10 (8-16); CALCIUM 9.1 mg/dL (8.5-10.1); CHLORIDE 110 mmol/L (98-107); CO2 22 mmol/L (21-32); GLUCOSE,RANDOM 125 mg/dL (74-106); SODIUM 142 mmol/L (136-145)
[2017-11-09 11:21] LABS: ALK PHOS 79 U/L (45-117); BILIRUBIN,TOTAL 0.5 mg/dL (0.2-1.0); CREATININE 0.7 mg/dL (0.55-1.02); SGOT/AST 25 U/L (15-37); SGPT/ALT 49 U/L (12-78); TOT PROT 6.8 g/dl (6.4-8.2)
[2017-11-09 11:25] LABS: BILIRUBIN,DIRECT < 0.2 mg/dL (0.0-0.2); BLOOD UREA NITROGEN 15 mg/dL (7-18); MAGNESIUM 1.5 mg/dL (1.8-2.4)
[2017-11-09] MEDS ORDERED: MAGNESIUM SULF 50% (8.12 MEQ/2 ML-1 GM VIAL) IVPB ONE (11:56)
[2017-11-09] MEDS ORDERED: MAGNESIUM SULFATE IN WATER 2 GM/50 ML IVPB IVPB ONE (12:15)
[2017-11-09 12:23] VITALS: TEMP 97.5
[2017-11-09] MEDS ORDERED: PORTA CATH FLUSH 10 ML IVPUSH ONE (12:23)
[2017-11-09 16:18] VITALS: BP 126/70; PULSE 60
== END 2017-11-09 16:13 | disposition home or self-care (01) ==
LOC: JONCCHEMO 07:24 → J7W 12:17 → JONCCHEMO 16:13
PROVIDERS: ATTEND Internal Medicine Hematology & Oncology
DX: Z51.11 Encounter for antineoplastic chemotherapy (principal); C50.012 Malignant neoplasm of nipple and areola, left female breast; C17.0 Malignant neoplasm of duodenum
CPT/HCPCS: 36415; 80053; 80076; 83735; 85025; 96361; 96366; 96367; 96375; 96413; 96417; J1100; J2405

== ENCOUNTER 2017-11-16 07:17 | Day surgery (SDC) | payer OTHER, BC ==
[2017-11-16] MEDS ORDERED: SODIUM CHLORIDE 250 ML IV ONE ×2 (08:00→10:00)
[2017-11-16] MEDS ORDERED: DIPHENHYDRAMINE IVPB ONE (08:30)
[2017-11-16] MEDS ORDERED: [UNRECOGNIZED DRUG - OTHER] IVPB ONE (08:30)
[2017-11-16] MEDS ORDERED: DEXAMETHASONE IVPB ONE (08:30)
[2017-11-16] MEDS ORDERED: ONDANSETRON IVPB ONE (08:30)
[2017-11-16] MEDS ORDERED: PACLITAXEL 144 MG in SODIUM CHLORIDE 250 ML IVPB ONE (09:00)
[2017-11-16 11:45] LABS: BASO % 2.9 % (0-2.0); EOS % 3.5 % (0-4.5); HEMATOCRIT 28.5 % (32.4-45.2); HEMOGLOBIN 9.9 GM/dL (10.7-15.3); LYMPH % 22.1 % (8-40); MCH 34.4 pg (25.7-33.7); MCHC 34.9 g/dl (32.0-36.0); MEAN CELL VOLUME 98.7 fl (80-96); MONO % 7.4 % (3.8-10.2); NEUT % 64.1 % (42.8-82.8); PLATELET COUNT 356 K/MM3 (134-434); RBC 2.88 M/mm3 (3.60-5.2); RDW 16.6 % (11.6-15.6); WHITE BLOOD COUNT 2.9 K/mm3 (4.0-10.0)
[2017-11-16 11:59] LABS: ALBUMIN 3.5 g/dl (3.4-5.0); ALK PHOS 75 U/L (45-117); ANION GAP 7 (8-16); BILIRUBIN,DIRECT 0.2 mg/dL (0.0-0.2); BILIRUBIN,TOTAL 0.9 mg/dL (0.2-1.0); BLOOD UREA NITROGEN 16 mg/dL (7-18); CALCIUM 9.4 mg/dL (8.5-10.1); CHLORIDE 106 mmol/L (98-107); CO2 26 mmol/L (21-32); CREATININE 0.6 mg/dL (0.55-1.02); GLUCOSE,RANDOM 132 mg/dL (74-106); MAGNESIUM 1.7 mg/dL (1.8-2.4); POTASSIUM 3.8 mmol/L (3.5-5.1); SGOT/AST 26 U/L (15-37); SGPT/ALT 45 U/L (12-78); SODIUM 139 mmol/L (136-145); TOT PROT 6.9 g/dl (6.4-8.2)
[2017-11-16] MEDS ORDERED: MAGNESIUM SULF 50% (8.12 MEQ/2 ML-1 GM VIAL) IVPB ONE (12:37)
[2017-11-16 13:23] LABS: ACANTHOCYTES 0; ANISOCYTOSIS 0; HELMET CELLS 0; HOWELL-JOLLY BODIES 0; MACROCYTOSIS 0; OVALOCYTE 0; PLATELET ESTIMATE NORMAL; ROULEAU 0; SICKELED CELLS 0; TARGET CELLS 0; TEAR DROP CELLS 0; TOXIC GRANULATION 0
[2017-11-16 17:58] VITALS: PULSE 80; TEMP 97.5
[2017-11-16 18:05] VITALS: BP 138/77
[2017-11-17] MEDS ORDERED: TBO-FILGRASTIM 480 MCG/0.8 ML DISP.SYRIN SQ ONE (10:00)
== END 2017-11-16 17:00 | disposition home or self-care (01) ==
LOC: JONCCHEMO 07:17
PROVIDERS: ATTEND Internal Medicine Hematology & Oncology
PROC: 3E04305 Introduction of Other Antineoplastic into Central Vein, Percutaneous Approach (ICD-10-PCS; principal; 2017-11-16)
PROC: 3E043GC Introduction of Other Therapeutic Substance into Central Vein, Percutaneous Approach (ICD-10-PCS; 2017-11-16)
PROC: 3E0437Z Introduction of Electrolytic and Water Balance Substance into Central Vein, Percutaneous Approach (ICD-10-PCS; 2017-11-16)
DX: Z51.11 Encounter for antineoplastic chemotherapy (principal); C50.012 Malignant neoplasm of nipple and areola, left female breast; Z17.0 Estrogen receptor positive status [ER+]
CPT/HCPCS: 36415; 80048; 80076; 83735; 85025; 96361; 96367; 96375; 96413; 96417; J1100; J2405

== ENCOUNTER 2017-11-20 14:45 | Day surgery (SDC) | payer OTHER, BC ==
[2017-11-20 16:02] LABS: URINE APPEARANCE CLEAR; URINE BILIRUBIN NEGATIVE (<2.0 mg/dL); URINE COLOR YELLOW; URINE GLUCOSE (UA) NEGATIVE (NEGATIVE); URINE KETONE NEGATIVE (NEGATIVE); URINE LEUK ESTERASE NEGATIVE (NEGATIVE); URINE NITRITE NEGATIVE (NEGATIVE); URINE PROTEIN NEGATIVE (NEGATIVE)
[2017-11-20 16:10] LABS: EOS % 2.4 % (0-4.5); HEMATOCRIT 30.6 % (32.4-45.2); HEMOGLOBIN 10.6 GM/dL (10.7-15.3); MCH 34.6 pg (25.7-33.7); MCHC 34.7 g/dl (32.0-36.0); MEAN CELL VOLUME 99.7 fl (80-96); MEAN PLT VOLUME 8.4 fl (7.5-11.1); MONO % 4.2 % (3.8-10.2); NEUT % 74.4 % (42.8-82.8); PLATELET COUNT 433 K/MM3 (134-434); RBC 3.07 M/mm3 (3.60-5.2); RDW 15.5 % (11.6-15.6); WHITE BLOOD COUNT 4.4 K/mm3 (4.0-10.0)
[2017-11-20 16:34] LABS: CHLORIDE 106 mmol/L (98-107); POTASSIUM 4.1 mmol/L (3.5-5.1); SODIUM 139 mmol/L (136-145)
[2017-11-20 17:17] LABS: ALBUMIN 3.8 g/dl (3.4-5.0); ALK PHOS 89 U/L (45-117); ANION GAP 7 (8-16); BILIRUBIN,TOTAL 0.5 mg/dL (0.2-1.0); BLOOD UREA NITROGEN 16 mg/dL (7-18); CALCIUM 9.4 mg/dL (8.5-10.1); CO2 26 mmol/L (21-32); CREATININE 0.6 mg/dL (0.55-1.02); GLUCOSE,RANDOM 115 mg/dL (74-106); LDH 182 U/L (84-246); SGOT/AST 29 U/L (15-37); SGPT/ALT 53 U/L (12-78); TOT PROT 7.1 g/dl (6.4-8.2); URIC ACID 2.9 mg/dL (2.6-7.2)
== END 2017-11-20 17:00 | disposition home or self-care (01) ==
LOC: JONCCHEMO 14:45 → J7W 15:39 → JONCCHEMO 17:00
PROVIDERS: ATTEND Internal Medicine Hematology & Oncology
PROC: 0JPVXVZ Removal of Infusion Pump from Upper Extremity Subcutaneous Tissue and Fascia, External Approach (ICD-10-PCS; principal; 2017-11-20)
DX: Z53.8 Procedure and treatment not carried out for other reasons (principal)
CPT/HCPCS: 36415; 80053; 81003; 83615; 84550; 85025; 87040; 87086

== ENCOUNTER 2017-11-30 07:34 | Day surgery (SDC) | payer OTHER, BC ==
[2017-11-30] MEDS ORDERED: SODIUM CHLORIDE 250 ML IV ONE ×2 (09:00→11:30)
[2017-11-30] MEDS ORDERED: DIPHENHYDRAMINE IVPB ONE (10:00)
[2017-11-30] MEDS ORDERED: ONDANSETRON IVPB ONE (10:00)
[2017-11-30] MEDS ORDERED: DEXAMETHASONE IVPB ONE (10:00)
[2017-11-30] MEDS ORDERED: [UNRECOGNIZED DRUG - OTHER] IVPB ONE (10:00)
[2017-11-30] MEDS ORDERED: PACLITAXEL 156 MG in SODIUM CHLORIDE 250 ML IVPB ONE (10:30)
[2017-11-30 12:04] LABS: BASO % 0.7 % (0-2.0); HEMATOCRIT 33.5 % (32.4-45.2); HEMOGLOBIN 11.4 GM/dL (10.7-15.3); LYMPH % 6.4 % (8-40); MCH 33.4 pg (25.7-33.7); MCHC 33.9 g/dl (32.0-36.0); MEAN CELL VOLUME 98.5 fl (80-96); MEAN PLT VOLUME 7.7 fl (7.5-11.1); MONO % 6.5 % (3.8-10.2); NEUT % 86.4 % (42.8-82.8); PLATELET COUNT 496 K/MM3 (134-434); RDW 15.3 % (11.6-15.6); WHITE BLOOD COUNT 7.8 K/mm3 (4.0-10.0)
[2017-11-30 12:46] LABS: ANION GAP 11 (8-16); BLOOD UREA NITROGEN 18 mg/dL (7-18); CALCIUM 9.7 mg/dL (8.5-10.1); CHLORIDE 105 mmol/L (98-107); CO2 25 mmol/L (21-32); CREATININE 0.7 mg/dL (0.55-1.02); GLUCOSE,RANDOM 145 mg/dL (74-106); POTASSIUM 4.2 mmol/L (3.5-5.1); SODIUM 141 mmol/L (136-145); TOT PROT 7.5 g/dl (6.4-8.2)
[2017-11-30 12:47] LABS: ALBUMIN 3.7 g/dl (3.4-5.0); ALK PHOS 89 U/L (45-117); BILIRUBIN,TOTAL 0.4 mg/dL (0.2-1.0); SGOT/AST 22 U/L (15-37); SGPT/ALT 36 U/L (12-78)
[2017-11-30 13:02] LABS: BILIRUBIN,DIRECT 0.2 mg/dL (0.0-0.2); MAGNESIUM 1.6 mg/dL (1.8-2.4)
[2017-11-30] MEDS ORDERED: DEXAMETHASONE SOD PHOSPHATE 10 MG/1 ML VIAL IVPB ONE ×2 (13:27→13:28)
[2017-11-30] MEDS ORDERED: SODIUM CHLORIDE IVPB ONE (13:45)
[2017-11-30] MEDS ORDERED: PACLITAXEL IVPB ONE (13:45)
[2017-11-30] MEDS ORDERED: MAGNESIUM SULFATE IN WATER 2 GM/50 ML IVPB IVPB ONE (15:00)
[2017-11-30 17:35] VITALS: TEMP 97.7
[2017-11-30 19:05] VITALS: BP 140/70; PULSE 75
== END 2017-11-30 18:50 | disposition home or self-care (01) ==
LOC: JONCCHEMO 07:34 → J7W 13:48 → JONCCHEMO 18:50
PROVIDERS: ATTEND Internal Medicine Hematology & Oncology
DX: Z51.11 Encounter for antineoplastic chemotherapy (principal); C50.012 Malignant neoplasm of nipple and areola, left female breast; Z17.0 Estrogen receptor positive status [ER+]
CPT/HCPCS: 36415; 80053; 80076; 83735; 85025; 96361; 96366; 96367; 96375; 96413; 96417; J1100

== ENCOUNTER 2017-12-14 07:38 | Day surgery (SDC) | payer OTHER, BC ==
[2017-12-14] MEDS ORDERED: SODIUM CHLORIDE 250 ML IV ONE ×2 (09:00→11:30)
[2017-12-14] MEDS ORDERED: DIPHENHYDRAMINE IVPB ONE (10:00)
[2017-12-14] MEDS ORDERED: DEXAMETHASONE IVPB ONE (10:00)
[2017-12-14] MEDS ORDERED: [UNRECOGNIZED DRUG - OTHER] IVPB ONE (10:00)
[2017-12-14] MEDS ORDERED: ONDANSETRON IVPB ONE (10:00)
[2017-12-14] MEDS ORDERED: PACLITAXEL 126 MG in SODIUM CHLORIDE 250 ML IVPB ONE (10:30)
[2017-12-14 12:08] LABS: BASO % 1.4 % (0-2.0); EOS % 6.5 % (0-4.5); HEMATOCRIT 32.2 % (32.4-45.2); HEMOGLOBIN 11.1 GM/dL (10.7-15.3); LYMPH % 20.4 % (8-40); MCH 33.6 pg (25.7-33.7); MCHC 34.4 g/dl (32.0-36.0); MEAN CELL VOLUME 97.8 fl (80-96); MEAN PLT VOLUME 8.2 fl (7.5-11.1); MONO % 3.5 % (3.8-10.2); NEUT % 68.2 % (42.8-82.8); PLATELET COUNT 351 K/MM3 (134-434); RBC 3.29 M/mm3 (3.60-5.2); RDW 15.3 % (11.6-15.6); WHITE BLOOD COUNT 4.5 K/mm3 (4.0-10.0)
[2017-12-14 12:39] LABS: ALBUMIN 2.2 g/dl (3.4-5.0); ANION GAP 5 (8-16); BLOOD UREA NITROGEN 19 mg/dL (7-18); CALCIUM 9.4 mg/dL (8.5-10.1); CHLORIDE 106 mmol/L (98-107); CO2 28 mmol/L (21-32); CREATININE 0.7 mg/dL (0.55-1.02); POTASSIUM 4.4 mmol/L (3.5-5.1); SGOT/AST 23 U/L (15-37); SGPT/ALT 41 U/L (12-78); SODIUM 139 mmol/L (136-145)
[2017-12-14 12:42] LABS: ALK PHOS 75 U/L (45-117); BILIRUBIN,TOTAL 0.5 mg/dL (0.2-1.0); GLUCOSE,RANDOM 86 mg/dL (74-106); TOT PROT 7.2 g/dl (6.4-8.2)
[2017-12-14 13:20] LABS: BILIRUBIN,DIRECT 0.3 mg/dL (0.0-0.2); MAGNESIUM 1.5 mg/dL (1.8-2.4)
[2017-12-14] MEDS ORDERED: MAGNESIUM 2GM/50ML STERILE WATER IVPB IVPB ONE (15:35)
[2017-12-14] MEDS: MAGNESIUM 1GM/D5W 100ML - 100 ML IVPB IVPB SCH ×2 (15:50→16:20)
[2017-12-14 16:57] VITALS: TEMP 97.8
[2017-12-14] MEDS ORDERED: PORTA CATH FLUSH 10 ML IVPUSH ONE (16:57)
[2017-12-14 17:21] VITALS: BP 147/73; PULSE 79
== END 2017-12-14 17:26 | disposition home or self-care (01) ==
LOC: JONCCHEMO 07:38 → J7W 12:30 → JONCCHEMO 17:26
PROVIDERS: ATTEND Internal Medicine Hematology & Oncology
DX: Z51.11 Encounter for antineoplastic chemotherapy (principal); C50.012 Malignant neoplasm of nipple and areola, left female breast
CPT/HCPCS: 36415; 80053; 80076; 83735; 85025; 96361; 96366; 96367; 96375; 96413; 96417; J1100

== ENCOUNTER 2017-12-21 07:47 | Day surgery (SDC) | payer OTHER, BC ==
[2017-12-21] MEDS ORDERED: SODIUM CHLORIDE 250 ML IV ONE ×2 (08:00→10:00)
[2017-12-21] MEDS ORDERED: DEXAMETHASONE IVPB ONE (08:30)
[2017-12-21] MEDS ORDERED: DIPHENHYDRAMINE IVPB ONE (08:30)
[2017-12-21] MEDS ORDERED: ONDANSETRON IVPB ONE (08:30)
[2017-12-21] MEDS ORDERED: [UNRECOGNIZED DRUG - OTHER] IVPB ONE (08:30)
[2017-12-21] MEDS ORDERED: PACLITAXEL 126 MG in SODIUM CHLORIDE 250 ML IVPB ONE (09:00)
[2017-12-21 12:18] LABS: EOS % 3.5 % (0-4.5); HEMATOCRIT 33.6 % (32.4-45.2); HEMOGLOBIN 11.5 GM/dL (10.7-15.3); LYMPH % 25.5 % (8-40); MCH 33.4 pg (25.7-33.7); MCHC 34.3 g/dl (32.0-36.0); MEAN CELL VOLUME 97.5 fl (80-96); MEAN PLT VOLUME 8.3 fl (7.5-11.1); MONO % 7.3 % (3.8-10.2); NEUT % 61.7 % (42.8-82.8); PLATELET COUNT 424 K/MM3 (134-434); RBC 3.45 M/mm3 (3.60-5.2); RDW 15.6 % (11.6-15.6); WHITE BLOOD COUNT 2.9 K/mm3 (4.0-10.0)
[2017-12-21 12:42] LABS: CHLORIDE 106 mmol/L (98-107); POTASSIUM 4.4 mmol/L (3.5-5.1); SODIUM 141 mmol/L (136-145)
[2017-12-21 13:02] LABS: ALBUMIN 3.9 g/dl (3.4-5.0); ALK PHOS 76 U/L (45-117); ANION GAP 14 (8-16); BILIRUBIN,TOTAL 0.5 mg/dL (0.2-1.0); BLOOD UREA NITROGEN 16 mg/dL (7-18); CALCIUM 9.4 mg/dL (8.5-10.1); CO2 21 mmol/L (21-32); CREATININE 0.8 mg/dL (0.55-1.02); GLUCOSE,RANDOM 149 mg/dL (74-106); SGOT/AST 30 U/L (15-37); SGPT/ALT 50 U/L (12-78); TOT PROT 7.3 g/dl (6.4-8.2)
[2017-12-21 14:27] LABS: ALBUMIN 3.9 g/dl (3.4-5.0); ALK PHOS 77 U/L (45-117); BILIRUBIN,DIRECT < 0.2 mg/dL (0.0-0.2); BILIRUBIN,TOTAL 0.5 mg/dL (0.2-1.0); MAGNESIUM 1.6 mg/dL (1.8-2.4); SGOT/AST 29 U/L (15-37); SGPT/ALT 52 U/L (12-78); TOT PROT 7.2 g/dl (6.4-8.2)
[2017-12-21 17:10] VITALS: BP 132/67; PULSE 96; TEMP 98
[2017-12-21] MEDS ORDERED: PORTA CATH FLUSH 10 ML IVPUSH ONE (17:17)
== END 2017-12-21 16:15 | disposition home or self-care (01) ==
LOC: JONCCHEMO 07:47 → J7W 12:42 → JONCCHEMO 16:15
PROVIDERS: ATTEND Internal Medicine Hematology & Oncology
DX: Z51.11 Encounter for antineoplastic chemotherapy (principal); C50.012 Malignant neoplasm of nipple and areola, left female breast
CPT/HCPCS: 36415; 80053; 80076; 83735; 85025; 96361; 96367; 96375; 96413; J1100; J2405

== ENCOUNTER 2017-12-28 07:42 | Day surgery (SDC) | payer OTHER, BC ==
[2017-12-28] MEDS ORDERED: SODIUM CHLORIDE 250 ML IV ONE ×2 (08:00→10:00)
[2017-12-28] MEDS ORDERED: DIPHENHYDRAMINE IVPB ONE (08:30)
[2017-12-28] MEDS ORDERED: DEXAMETHASONE IVPB ONE (08:30)
[2017-12-28] MEDS ORDERED: [UNRECOGNIZED DRUG - OTHER] IVPB ONE (08:30)
[2017-12-28] MEDS ORDERED: ONDANSETRON IVPB ONE (08:30)
[2017-12-28] MEDS ORDERED: PACLITAXEL 126 MG in SODIUM CHLORIDE 250 ML IVPB ONE (09:00)
[2017-12-28 12:06] LABS: BASO % 1.7 % (0-2.0); EOS % 1.9 % (0-4.5); HEMATOCRIT 30.2 % (32.4-45.2); HEMOGLOBIN 10.5 GM/dL (10.7-15.3); LYMPH % 29.1 % (8-40); MCH 33.5 pg (25.7-33.7); MCHC 34.9 g/dl (32.0-36.0); MEAN CELL VOLUME 96.1 fl (80-96); MEAN PLT VOLUME 7.6 fl (7.5-11.1); MONO % 9.8 % (3.8-10.2); NEUT % 57.5 % (42.8-82.8); PLATELET COUNT 426 K/MM3 (134-434); RBC 3.15 M/mm3 (3.60-5.2); RDW 15.3 % (11.6-15.6); WHITE BLOOD COUNT 2.9 K/mm3 (4.0-10.0)
[2017-12-28 12:35] LABS: ALBUMIN 3.8 g/dl (3.4-5.0); ALK PHOS 80 U/L (45-117); ANION GAP 8 (8-16); BILIRUBIN,DIRECT 0.2 mg/dL (0.0-0.2); BILIRUBIN,TOTAL 0.4 mg/dL (0.2-1.0); BLOOD UREA NITROGEN 20 mg/dL (7-18); CALCIUM 9.4 mg/dL (8.5-10.1); CHLORIDE 107 mmol/L (98-107); CO2 25 mmol/L (21-32); CREATININE 0.7 mg/dL (0.55-1.02); GLUCOSE,RANDOM 100 mg/dL (74-106); MAGNESIUM 1.4 mg/dL (1.8-2.4); POTASSIUM 3.7 mmol/L (3.5-5.1); SGOT/AST 26 U/L (15-37); SGPT/ALT 42 U/L (12-78); SODIUM 140 mmol/L (136-145); TOT PROT 7.2 g/dl (6.4-8.2)
[2017-12-28] MEDS ORDERED: MAGNESIUM SULF 50% (8.12 MEQ/2 ML-1 GM VIAL) IVPB ONE (13:12)
[2017-12-28] MEDS ORDERED: MAGNESIUM SULF 50% (8.12 MEQ/2 ML-1 GM VIAL) ONE (13:32)
[2017-12-28] MEDS ORDERED: MAGNESIUM SULFATE IN WATER 2 GM/50 ML IVPB IVPB ONE (14:00)
[2017-12-28 16:15] VITALS: PULSE 79; TEMP 97.9
[2017-12-28] MEDS ORDERED: PORTA CATH FLUSH 10 ML IVPUSH ONE (16:30)
[2017-12-28 18:08] VITALS: BP 142/77
== END 2017-12-28 18:08 | disposition home or self-care (01) ==
LOC: JONCCHEMO 07:42 → J7W 13:22 → JONCCHEMO 18:08
PROVIDERS: ATTEND Internal Medicine Hematology & Oncology
DX: Z51.11 Encounter for antineoplastic chemotherapy (principal); C50.012 Malignant neoplasm of nipple and areola, left female breast
CPT/HCPCS: 36415; 80053; 80076; 83735; 85025; 96361; 96367; 96375; 96413; 96415; 96417; J1100; J2405

== ENCOUNTER → 2018-01-04 | Day surgery (SDC) | payer OTHER, BC ==
[~2018-01-04] MED LIST: DEXAMETHASONE IVPB ONE; DIPHENHYDRAMINE IVPB ONE; ONDANSETRON IVPB ONE; PACLITAXEL 126 MG in SODIUM CHLORIDE 250 ML IVPB ONE; SODIUM CHLORIDE 250 ML IV ONE; [UNRECOGNIZED DRUG - OTHER] IVPB ONE
[2018-01-04 12:05] VITALS: BP 101/67; PULSE 96; TEMP 97.9
[2018-01-04 12:24] LABS: BASO % 2.5 % (0-2.0); EOS % 0.9 % (0-4.5); HEMOGLOBIN 10.6 GM/dL (10.7-15.3); LYMPH % 31.5 % (8-40); MCHC 35.3 g/dl (32.0-36.0); MEAN CELL VOLUME 96.5 fl (80-96); MEAN PLT VOLUME 7.9 fl (7.5-11.1); MONO % 8.4 % (3.8-10.2); NEUT % 56.7 % (42.8-82.8); PLATELET COUNT 529 K/MM3 (134-434); RBC 3.11 M/mm3 (3.60-5.2); RDW 15.6 % (11.6-15.6)
[2018-01-04 12:56] LABS: ALBUMIN 3.8 g/dl (3.4-5.0); MAGNESIUM 1.6 mg/dL (1.8-2.4)
[2018-01-04 12:57] LABS: ALBUMIN 3.8 g/dl (3.4-5.0); ANION GAP 10 (8-16); BLOOD UREA NITROGEN 18 mg/dL (7-18); CALCIUM 9.7 mg/dL (8.5-10.1); CHLORIDE 105 mmol/L (98-107); CO2 24 mmol/L (21-32); GLUCOSE,RANDOM 107 mg/dL (74-106); POTASSIUM 4.1 mmol/L (3.5-5.1); SODIUM 139 mmol/L (136-145)
[2018-01-04 12:58] LABS: BILIRUBIN,DIRECT 0.2 mg/dL (0.0-0.2); BILIRUBIN,TOTAL 0.5 mg/dL (0.2-1.0); TOT PROT 7.2 g/dl (6.4-8.2)
[2018-01-04 13:02] LABS: ALK PHOS 77 U/L (45-117); BILIRUBIN,TOTAL 0.5 mg/dL (0.2-1.0); CREATININE 0.9 mg/dL (0.55-1.02); SGOT/AST 30 U/L (15-37); SGPT/ALT 43 U/L (12-78); TOT PROT 7.2 g/dl (6.4-8.2)
== END | disposition home or self-care (01) ==
LOC: JONCCHEMO 08:16
PROVIDERS: ATTEND Internal Medicine Hematology & Oncology
PROC: 3E033GC Introduction of Other Therapeutic Substance into Peripheral Vein, Percutaneous Approach (ICD-10-PCS; principal; 2018-01-04)
DX: Z53.8 Procedure and treatment not carried out for other reasons (principal)
CPT/HCPCS: 36415; 80053; 80076; 83735; 85025

== ENCOUNTER 2018-01-25 12:06 | Day surgery (SDC) | payer OTHER, BC ==
[2018-01-19 16:25] VITALS: BMI 30.9
--- NOTE | 2018-01-22 10:01 | HP ---
Admitting History and Physical - Primary Care Physician PCP: Nacho Cruz - Admission Chief Complaint: Left breast cancer History of Present Illness: 67 year old [place] female S/P Left breast wide excision and axillary node dissection 05/2017 final path showed 4x2.5 cm invasive ductal carcioma 7=/ 12 nodes Stage 3 breast cancer. She as given AC-T chemotherapy but only completed 9 out of 12 cycle of taxotere due to macupapular rash. She is going to undergo RT but would like her port reoved. History Source: Patient Limitations to Obtaining History: No Limitations - Past Medical History Cardiovascular: Yes: HTN, Hyperlipdemia Endocrine: Yes: Diabetes Mellitus - Past Surgical History Additional Past Surgical History: Right breast wide excision axillary node dissection, Stage 3 invasive ductal carcinoma 05/2017 - Smoking History Smoking history: Former smoker Have you smoked in the past 12 months: No If you are a former smoker, when did you quit?: 2006 - Alcohol/Substance Use Hx Alcohol Use: No Home Medications - Allergies Allergies/Adverse Reactions: Allergies Allergy/AdvReac Type Severity Reaction Status Date / Time No Known Drug Allergies Allergy Severe Difficulty Verified 01/19/18 16:18 Breathing shellfish derived Allergy Severe throat Verified 01/19/18 16:18 closes - Home Medications Home Medications: Ambulatory Orders Atorvastatin Ca [Lipitor] 40 mg PO HS 05/31/17 Gemfibrozil 600 mg PO BID 05/31/17 Glimepiride 2 tab PO BID 05/31/17 Losartan Potassium 50 mg PO DAILY 05/31/17 Metformin HCl [Glucophage] 1,000 mg PO BID 05/31/17 Acetaminophen [Tylenol] 650 mg PO TID PRN 7 Days tablet 08/01/17 Carvedilol [Coreg] 6.25 mg PO BID 01/19/18 Omeprazole 20 mg PO DAILY 01/19/18 Family Disease History - Family Disease History Family Disease History: CA: Mother (lung ca 67) Physical Examination Constitutional: Yes: Well Nourished Breast(s): Yes: Other ( Left breast central wide incision and axilla healing well no signs of infection, no evidence of recurrence or mass right breast) Problem List - Problems (1) Breast cancer, left breast Code(s): C50.912 - MALIGNANT NEOPLASM OF UNSPECIFIED SITE OF LEFT FEMALE BREAST Qualifiers: Breast location: nipple Patient sex: female Assessment/Plan right life port removal
[2018-01-25] MEDS ORDERED: LIDOCAINE HCL 1%, 10 MG/ML (20ML VIAL) ONE (13:31)
[2018-01-25] MEDS ORDERED: BUPIVACAINE HCL/PF 2.5 MG/ML - 30 ML VIAL IJ ONE (13:31)
[2018-01-25] MEDS ORDERED: SODIUM CHLORIDE 0.9% P/F 10 ML VIAL IJ ONE (13:35)
[2018-01-25] MEDS ORDERED: ONDANSETRON 4 MG/2 ML VIAL ONE (13:35)
[2018-01-25] MEDS ORDERED: DEXAMETHASONE SOD PHOSPHATE 4 MG/1 ML VIAL ONE (13:35)
[2018-01-25] MEDS ORDERED: ceFAZolin SODIUM 1 GM VIAL ONE (13:35)
[2018-01-25] MEDS ORDERED: PROPOFOL 20 ML ONE (13:36)
[2018-01-25] MEDS ORDERED: ONDANSETRON 4 MG/2 ML VIAL IVPUSH PRN ×2 (13:55→16:25)
[2018-01-25] MEDS ORDERED: KETOROLAC TROMETHAMINE 30 MG/1 ML VIAL IVPUSH PRN (13:55)
[2018-01-25] MEDS ORDERED: DEXTROSE 5%-0.45% SALINE 1,000 ML IV SCH (14:00)
[2018-01-25 15:31] VITALS: TEMP 97.6
[2018-01-25 15:50] VITALS: BP 123/64; PULSE 77
[2018-01-25] MEDS ORDERED: oxyCODONE HCL 5 MG TABLET PO PRN ×2 (16:25)
[2018-01-25] MEDS ORDERED: PROMETHAZINE HCL 25 MG/1 ML VIAL IVPUSH PRN (16:25)
--- NOTE | 2018-01-25 22:52 | OP ---
DATE OF OPERATION: 01/25/2018 PREOPERATIVE DIAGNOSIS: Left breast cancer status post partial mastectomy, axillary node dissection, chemotherapy. POSTOPERATIVE DIAGNOSIS: Left breast cancer status post partial mastectomy, axillary node dissection, chemotherapy. PROCEDURE: Right-sided subclavian vein Port-A-Cath removal. ANESTHESIA: Local with IV sedation. SURGEON: Krish Cruz M.D. KITCHENWHERE MAKER: Moriah Green COMPLICATIONS: There were no complications. DESCRIPTION OF PROCEDURE: Briefly, the patient is a 67-year-old G4, P3 postmenopausal female of [place] descent with no family history of breast or ovarian cancer. She was found to have some left nipple flattening the end of April 2017 and underwent an ultrasound and ultrasound guided core biopsy showing an infiltrating ductal cancer which was ER/SD positive, HER2 negative, with a positive axillary lymph node. MRI showed a 4.3-cm left retroareolar breast mass and the positive node. She underwent the left breast partial mastectomy and axillary node dissection on June 08, 2017, for a 4 x 2.5 cm invasive duct cancer and had 7 out of 12 positive lymph nodes with lymphovascular invasion and perineural invasion. She had extranodal extension as well. She had a stage 3 breast cancer and was seen by Dr. Crowder in medical oncology and underwent ACT chemotherapy but could only complete 9 out of 12 cycles of the Taxotere due to a macular papular rash. The patient now requires removal of the Port-A-Cath and will require radiation over the left breast. She comes in now for removal of the right sided subclavian vein Port-A-Cath. The patient was brought into ambulatory surgery on January 25, 2018. In the holding area, site verification was made and informed consent was obtained. She was brought into the operating room and laid on the OR table in the supine position. Venodyne was placed on the lower extremities. She received IV sedation. The upper right chest wall was sterilely prepped and draped in the usual fashion. She did not receive any IV antibiotics given the small nature of the excision. Then 1% lidocaine was given directly over the Port-A-Cath site over the right chest wall. An elliptical incision was made removing the previous scar tissue and dissection was undertaken around the single lumen Port-A-Cath. This was completely removed intact and the capsule around the Port-A-Cath was removed as well. The Port-A-Cath was sent to pathology as specimen. Hemostasis was achieved. Soft tissue was then closed using interrupted 3-0 Vicryl suture. The skin was closed using interrupted 3-0 deep dermal Vicryl suture and a running 4-0 subcuticular Biosyn suture. Mastisol, Steri-Strips were applied over the wound, compression dressing placed over this. The patient tolerated the procedure well without difficulty, was awake and alert at the end of the procedure. The patient will be brought back to ambulatory surgery and discharged home the same day when discharge criteria are met. She is to follow up in the office just for a postoperative wound evaluation. one week. All sponge and needle counts are correct at the end of the case, and estimated blood loss was minimal. KRISH CRUZ M.D. [id number]
--- NOTE | 2018-01-29 09:31 | PATH ---
Surgical Pathology Report Patient Name: AUDREY GARCIA [facility]. Rec. #: [id number] /Age/Gender: 1950 (Age: 67) / F Account: [id number] Location: [facility] AMBULATORY Taken: 01/25/2018 Received: 01/25/2018 Reported: 01/29/2018 Physicians: Nacho Cruz M.D. Specimen(s) Received EXPLANTED PORTACATH Clinical History Left breast cancer Final Diagnosis PORT-A-CATH, EXPLANTATION: PORT-A-CATH. MACROSCOPIC DIAGNOSIS. Electronically Signed Juliana Vyas M.D. Gross Description Received fresh labeled "explanted Port-A-Cath," is a 2.6 x 2.3 x 1.4 cm purple, triangular device, consistent with a carly cath. The Port-A-Cath displays a 17 cm in length portion of white tubing extending from one aspect. The specimen has the following inscription: "BARD [id number]." No soft tissue is present. No sections are submitted, gross only. /01/26/2018 saudi01/26/2018
== END 2018-01-25 15:54 | disposition home or self-care (01) ==
LOC: FASU 12:06
PROVIDERS: ATTEND Surgery Surgical Oncology
PROC: 05PY03Z Removal of Infusion Device from Upper Vein, Open Approach (ICD-10-PCS; 2018-01-25)
PROC: 0JPV0WZ Removal of Totally Implantable Vascular Access Device from Upper Extremity Subcutaneous Tissue and Fascia, Open Approach (ICD-10-PCS; principal; 2018-01-25 14:45)
DX: C50.012 Malignant neoplasm of nipple and areola, left female breast (principal); Z90.12 Acquired absence of left breast and nipple; Z92.21 Personal history of antineoplastic chemotherapy
CPT/HCPCS: 82962; 88300-TC